=== PATIENT | male | born 1980 | race Caucasian/White ===

== ENCOUNTER 2018-06-05 07:38 | Inpatient (IN) ==
[2018-06-05] MEDS ORDERED: LORazepam 0.5 MG Tablet PO ONE (07:52)
--- NOTE | 2018-06-05 07:59 | ED ---
HPI General Chief Complaint: Psychiatric Symptoms Stated Complaint: Chest Pain Time Seen by Provider: 06/05/18 07:52 Source: patient and EMS Mode of arrival: EMS Limitations: no limitations History of Present Illness HPI Narrative: 37-year-old male patient with history of depression, presents to the ER today brought in by EMS because he states that he is feeling scared, feels like he is not safe, is anxious, having chest discomfort, palpitations, shortness of breath, and states that it is starting to get better now. He currently states that the discomfort is a 5 out of 10. He states he has had suicidal ideation in the past although denies any currently. He denies any homicidal ideation, hallucinations. He states that his mother was schizophrenic. He is requesting to see a psychiatrist. Modifying Factors: None Associated Signs & Symptoms: Anxiety, chest discomfort, paranoia, request for psychiatric care Risk Factors: Depression history Related Data Home Medications Medication Instructions Recorded Confirmed No Known Home Medications 06/05/18 06/05/18 Allergies Allergy/AdvReac Type Severity Reaction Status Date / Time aspirin Allergy Rash Verified 06/05/18 07:50 Review of Systems ROS: all other systems reviewed are negative PMFSH History History Provided By: Patient Medical History Medical History Depression (Acute) Family History Family History Father Cancer Heart disease Mother Cancer Heart disease Other Parents Social History Social History Substance History: Active Abuse Second Hand Smoke Exposure: No Smoking Status: Current every day smoker Tobacco Type: Cigarettes Packs Per Day: 1 Cigarettes Per Day: 20.0 How Often Do You Have a Drink Containing Alcohol: Monthly or less Recent Travel in [facility] within the Last 8 Weeks: No Recent Out of Country Travel within the Last 8 Weeks: No Exam Narrative Exam Narrative: GENERAL: Well-developed thin middle-aged male patient currently in mild distress. Awake and oriented x3. SKIN: Focused skin assessment warm/dry. HEAD: Atraumatic. Normocephalic. EYES: Pupils equal and round. No scleral icterus. No injection or drainage. ENT: No nasal bleeding or discharge. Mucous membranes pink and moist. NECK: Trachea midline. No JVD. CARDIOVASCULAR: Regular rate and rhythm. No murmur appreciated. RESPIRATORY: No accessory muscle use. Clear to auscultation. Breath sounds equal bilaterally. GASTROINTESTINAL: Abdomen soft, non-tender, nondistended. Hepatic and splenic margins not palpable. MUSCULOSKELETAL: No obvious deformities. No clubbing. No cyanosis. No edema. NEUROLOGICAL: Awake and alert. No obvious cranial nerve deficits. Motor grossly within normal limits. Normal speech. PSYCHIATRIC: Depressed mood and flat affect; insight and judgment normal. Course Initial Documented Vital Signs Temperature 98.1 F 06/05/18 07:51 Pulse Rate 83 06/05/18 07:51 Respiratory Rate 16 06/05/18 07:51 Blood Pressure 175/93 H 06/05/18 07:51 Pulse Oximetry 100 06/05/18 07:51 Last Documented Vital Signs Temperature 97.6 F 06/07/18 17:15 Pulse Rate 118 H 06/07/18 17:15 Respiratory Rate 18 06/07/18 17:15 Blood Pressure 129/84 06/07/18 17:15 Pulse Oximetry 99 06/07/18 17:15 Medical Decision Making MDM Narrative Medical decision making narrative: Patient is fairly anxious and mildly paranoid. He wants to speak to psychiatry. He has no current homicidal or suicidal ideation and hallucinations. However, I think it is appropriate for him to see psych. Symptoms are most consistent with an anxiety attack. EKG and lab work was fairly unremarkable. My plan at this point would be to medically clear him for psychiatric evaluation. Medical Screen Exam Complete: Yes Emergency Medical Condition: Yes Differential Diagnosis Differential Diagnosis: Anxiety attack versus psychosis versus electrolyte abnormalities versus dysrhythmias versus AC Lab Data Lab results reviewed: Yes I reviewed the patient's lab results. Result diagrams: 06/05/18 07:50 06/07/18 06:35 Lab Results 06/05/18 06/05/18 06/05/18 Range/Units 07:50 07:50 09:45 WBC 8.0 (4.0-11.0) th/mm3 RBC 4.45 L (4.50-5.90) mil/mm3 Hgb 13.6 (13.0-17.0) gm/dL Hct 39.6 (39.0-51.0) % MCV 89.0 (80.0-100.0) fL MCH 30.4 (27.0-34.0) pg MCHC 34.2 (32.0-36.0) % RDW 14.8 (11.6-17.2) % Plt Count 244 (150-450) th/mm3 MPV 8.1 (7.0-11.0) fL Neut % (Auto) 74.0 H (16.0-70.0) % Lymph % (Auto) 17.9 (9.0-44.0) % Lincoln % (Auto) 4.5 (0.0-8.0) % Eos % (Auto) 2.8 (0.0-4.0) % Baso % (Auto) 0.8 (0.0-2.0) % Neut # (Auto) 5.9 (1.8-7.7) th/mm3 Lymph # (Auto) 1.4 (1.0-4.8) th/mm3 Lincoln # (Auto) 0.4 (0.0-0.9) th/mm3 Eos # (Auto) 0.2 (0.0-0.4) th/mm3 Baso # (Auto) 0.1 (0.0-0.2) th/mm3 WBC Differential . Differential Comment Auto diff final Sodium 140 (136-145) meq/L Potassium 4.2 (3.5-5.1) meq/L Chloride 105 (98-107) meq/L Carbon Dioxide 29.4 (21.0-32.0) meq/L Anion Gap 6 (5-15) meq/L BUN 11 (7-18) mg/dL Creatinine 0.83 (0.60-1.30) mg/dL Estimated GFR Greater than 89 (>89) mL/min Random Glucose 97 (74-106) mg/dL Hemoglobin A1c (4.3-6.0) % Calcium 8.4 L (8.5-10.1) mg/dL Magnesium 2.2 (1.5-2.5) mg/dL Total Bilirubin 0.2 (0.2-1.0) mg/dL AST 22 (15-37) U/L ALT 31 (12-78) U/L Alkaline Phosphatase 71 (45-117) U/L Troponin I Less than 0.02 L (0.02-0.05) ng/mL Total Protein 7.7 (6.4-8.2) g/dL Albumin 4.0 (3.4-5.0) g/dL Triglycerides (42-150) mg/dL Cholesterol (120-200) mg/dL LDL Cholesterol, Calc (0-99) mg/dL HDL Cholesterol (40.0-60.0) mg/dL Cholesterol/HDL Ratio Ratio TSH 0.629 (0.358-3.740) uIU/mL Urine Opiates Screen Neg (Neg) Ur Barbiturates Screen Neg (Neg) Ur Amphetamines Screen Pos H (Neg) U Benzodiazepines Scrn Neg (Neg) Urine Cocaine Screen Neg (Neg) U Cannabinoids Screen Pos H (Neg) Serum Alcohol Less than 3 (0-5) mg/dL 06/07/18 06/07/18 Range/Units 06:35 06:35 WBC (4.0-11.0) th/mm3 RBC (4.50-5.90) mil/mm3 Hgb (13.0-17.0) gm/dL Hct (39.0-51.0) % MCV (80.0-100.0) fL MCH (27.0-34.0) pg MCHC (32.0-36.0) % RDW (11.6-17.2) % Plt Count (150-450) th/mm3 MPV (7.0-11.0) fL Neut % (Auto) (16.0-70.0) % Lymph % (Auto) (9.0-44.0) % Lincoln % (Auto) (0.0-8.0) % Eos % (Auto) (0.0-4.0) % Baso % (Auto) (0.0-2.0) % Neut # (Auto) (1.8-7.7) th/mm3 Lymph # (Auto) (1.0-4.8) th/mm3 Lincoln # (Auto) (0.0-0.9) th/mm3 Eos # (Auto) (0.0-0.4) th/mm3 Baso # (Auto) (0.0-0.2) th/mm3 WBC Differential Differential Comment Sodium 141 (136-145) meq/L Potassium 4.4 (3.5-5.1) meq/L Chloride 105 (98-107) meq/L Carbon Dioxide 29.6 (21.0-32.0) meq/L Anion Gap 6 (5-15) meq/L BUN 21 H (7-18) mg/dL Creatinine 0.94 (0.60-1.30) mg/dL Estimated GFR Greater than 89 (>89) mL/min Random Glucose 96 (74-106) mg/dL Hemoglobin A1c 5.3 (4.3-6.0) % Calcium 8.8 (8.5-10.1) mg/dL Magnesium (1.5-2.5) mg/dL Total Bilirubin (0.2-1.0) mg/dL AST (15-37) U/L ALT (12-78) U/L Alkaline Phosphatase (45-117) U/L Troponin I (0.02-0.05) ng/mL Total Protein (6.4-8.2) g/dL Albumin (3.4-5.0) g/dL Triglycerides 137 (42-150) mg/dL Cholesterol 138 (120-200) mg/dL LDL Cholesterol, Calc 72 (0-99) mg/dL HDL Cholesterol 38.4 L (40.0-60.0) mg/dL Cholesterol/HDL Ratio 3.59 Ratio TSH (0.358-3.740) uIU/mL Urine Opiates Screen (Neg) Ur Barbiturates Screen (Neg) Ur Amphetamines Screen (Neg) U Benzodiazepines Scrn (Neg) Urine Cocaine Screen (Neg) U Cannabinoids Screen (Neg) Serum Alcohol (0-5) mg/dL Imaging Data Attestation: I personally reviewed and interpreted this imaging study as follows : Radiologist's impression: Chest X-Ray 06/05/18 07:52 CONCLUSION: Negative chest ECG Data Attestation: I personally reviewed and interpreted this ECG as follows: Interpretation: EKG shows NSR, no ST elevation or depression, and no arrhythmias. No significant T-wave inversions. Discharge Plan Discharge Disposition Patient Disposition: ED Admit(ED Internal Use Only) Discharge Condition Condition: Stable Discharge Order Discharge Orders: ED Use Only Admit Order (Routine); Ordered 06/06/18 Ordered By: Valerie Burton Discharge Details Anticipated Discharge Date: 06/05/18 Diagnosis: Acute anxiety Physicians Team ED Provider: Miki Mirza Primary Care Provider: Primary Care Lily,Wendy Attending Provider: Ron Askew Other Providers: Utilizer,[facility] ; Bakari Cunningham Status ED Status: Left Department Discharge Information Discharge Date/Time: 06/06/18 15:10
[2018-06-05 08:12] LABS: Baso # (Auto) 0.1 th/mm3 (0.0-0.2); Baso % (Auto) 0.8 % (0.0-2.0); Eos # (Auto) 0.2 th/mm3 (0.0-0.4); Eos % (Auto) 2.8 % (0.0-4.0); Hematocrit 39.6 % (39.0-51.0); Hemoglobin 13.6 gm/dL (13.0-17.0); Lymph # (Auto) 1.4 th/mm3 (1.0-4.8); Lymph % (Auto) 17.9 % (9.0-44.0); Mean Corpuscular HGB Conc 34.2 % (32.0-36.0); Mean Corpuscular Hemoglobin 30.4 pg (27.0-34.0); Mean Platelet Volume 8.1 fL (7.0-11.0); Mono # (Auto) 0.4 th/mm3 (0.0-0.9); Mono % (Auto) 4.5 % (0.0-8.0); Neut # (Auto) 5.9 th/mm3 (1.8-7.7); Platelet Count 244 th/mm3 (150-450); Red Blood Count 4.45 mil/mm3 (4.50-5.90); Red Cell Distribution Width 14.8 % (11.6-17.2)
--- NOTE | 2018-06-05 08:35 | XR ---
EXAM DATE: 06/05/2018 8:14 AM EST AGE/SEX: 37 years / Male INDICATIONS: Short of breath and heart palpitations. CLINICAL DATA: This is the patient's initial encounter. Patient reports that signs and symptoms have been present for 1 day and indicates a pain score of 0/10. MEDICAL/SURGICAL HISTORY: None. None. COMPARISON: No prior exams available for comparison. FINDINGS: A single AP view of the chest demonstrates the lungs to be symmetrically aerated without evidence of mass, infiltrate or effusion. The cardiomediastinal contours are unremarkable. Osseous structures a re intact. CONCLUSION: Negative chest Electronically signed by: Kali Swenson MD Board Certified Radiologist 06/05/2018 8:34 AM EST
[2018-06-05 08:37] LABS: Alanine Aminotransferase 31 U/L (12-78); Anion Gap 6 meq/L (5-15); Aspartate Aminotransferase 22 U/L (15-37); Blood Urea Nitrogen 11 mg/dL (7-18); Calcium 8.4 mg/dL (8.5-10.1); Carbon Dioxide 29.4 meq/L (21.0-32.0); Chloride 105 meq/L (98-107); Glomerular Filtration Rate Greater Than 89 mL/min (>89); Glucose,Random 97 mg/dL (74-106); Magnesium 2.2 mg/dL (1.5-2.5); Potassium 4.2 meq/L (3.5-5.1); Sodium 140 meq/L (136-145)
[2018-06-05 08:46] LABS: Alkaline Phosphatase 71 U/L (45-117); Thyroid Stimulating Hormone 0.629 uIU/mL (0.358-3.740); Total Protein 7.7 g/dL (6.4-8.2)
[2018-06-05 10:21] LABS: Amphetamine Screen,Urine Pos (Neg); Barbiturate Screen,Urine Neg (Neg); Cannabinoid Screen,Urine Pos (Neg); Cocaine Screen,Urine Neg (Neg)
[2018-06-05 10:32] LABS: Opiate Screen,Urine Neg (Neg)
--- NOTE | 2018-06-05 15:35 | ECG ---
Date Performed: 06/05/2018 Time Performed: 08:01:22 PTAGE: 37 years EKG: Sinus rhythm NORMAL ECG INTERPRETATION BASED ON A DEFAULT AGE OF 41 YEARS NO PREVIOUS TRACING DOCTOR: Vicenta Mcconnell Interpretating Date/Time 06/05/2018 15:32:08
[2018-06-06] MEDS ORDERED: Aluminum/Magnesium/Simethacone Susp 30 ML UDC PO PRN (15:59)
[2018-06-06] MEDS ORDERED: Acetaminophen 325 MG Tablet PO PRN (15:59)
[2018-06-06] MEDS ORDERED: traZODone 50 MG Tablet PO PRN (15:59)
--- NOTE | 2018-06-06 16:57 | P.HPPSY ---
Provisional Diagnosis Admission Date: June 05, 2018 07:38 [place] I.: Psychosis not otherwise specified [place] II.: Methamphetamine abuse Competence Certification of Person's Competence To Provide Express and Informed Consent I have personally examined Dar Booth, a person being served at [facility] on, June 06, 2018 1613. Express and informed consent means consent voluntarily given in writing, by a competent person, after sufficient explanation and disclosure of the subject matter involved to enable the person to make a knowing and willful decision without any element of force, fraud, deceit, duress, or other form of constraint or coercion. This person is 18 years of age or older, is not now known to be incompetent to consent to treatment with a guardian advocate, and does not have a health care surrogate or proxy currently making medical treatment decisions. I have found this person to be one of the following: [xxx] Competent to provide express and informed consent, as defined above, for voluntary admission to this facility and is competent to provide express and informed consent for treatment. He/she has the consistent capacity to make well reasoned, willful, and knowing decisions concerning his or her medical or mental health treatment. The person fully and consistently understands the purpose of the admission for examination/placement and is fully capable of personally exercising all rights assured [place] [] Incompetent to provide express and informed consent to voluntary admission, and this is incompetent to provide express and informed consent to treatment. The person must be transferred to involuntary status and a petition for a guardian advocate filed with the Circuit Court. [] Refusing to provide express and informed consent to voluntary admission but is competent to provide express and informed consent for treatment. The person must be discharged or transferred to involuntary status. Form shall be completed within 24 hours of a person's arrival at the receiving facility and filed in the clinical record of each person: 1. Admitted on a voluntary basis 2. Permitted to provide express and informed consent to his/her own treatment 3. Allowed to transfer from involuntary to voluntary status 4. Prior to permitting a person to consent to his or her own treatment after having been previously found incompetent to consent to treatment. History of Present Illness Capacity: Has capacity Chief Complaint: Psychosis not otherwise specified History of Present Illness: This is a 37-year-old single, male who presents to this facility voluntarily. He was brought in by his sister for paranoid delusions. He is not previously known to this facility and denies previous admissions for mental health treatment. He does endorse having been treated outpatient for depression but cannot remember the name of the medication. He is examined in his room in J pod with Benoit Hauser, heel caser present. He is found lying quietly on the bed with a blanket over him, clad in [facility]. He states that he believes "people are listening" when asked who is listening he states, "I do not know". He denies being suicidal or homicidal but endorses auditory hallucinations and visual hallucinations stating that he sees, "people pointing lasers and guns at me. They are out to get me and they want me ". He states this is been going on for approximately a week or so. He does appear to be paranoid as when an overhead announcement is made he jumped on the bed and starts looking around suspiciously. When asked if he would defend himself against these people he states, "what I do not have anything to do that with your do why I would run and hide, I do not want to ". The patient states that he is from [place] and is been down here to live with his sister for "not quite a year now". 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 His highest education is ninth grade. He denies the possession of any firearms in [place]. His toxicology screen is positive for methamphetamines and cannabinoids. He admits to using methamphetamine since the age of 18. He claims that he only does it approximately "3 times a month". He does state that he is dabbled and crack cocaine previously but denies using it on a regular basis. He claims that he smokes weed "every day if I could". He reports smoking cigarettes and states that he drinks occasionally. He reports that his mother had a diagnosis of paranoid schizophrenia. He states that he was a cutter as a young child and is somewhat vague when asked about previous suicide attempts. He reports that he feels he might have been trying to kill himself when cutting "as a kid". He does state that he had one previous overdose on methadone but insists that was an accident. When I mention that psychosis is often a result of methamphetamine use he becomes irritable and states, "I do not believe that methamphetamines have anything to do with it. I use them to help me work." Patient reports a previous history of asthma but states that he no longer uses any medication for it. He denies any previous surgeries. He denies being on any current prescribed medications. He states that he has been incarcerated in senior care with the longest period being "40 years something days". He states this was a drug-related charge. Review of Systems All other systems reviewed negative except as stated in HPI [facility] - History History Provided By: Patient - Medical History Medical History: Medical History (Last Reviewed 06/06/18 @ 16:47 by KRYSTAL Patel) Depression - Tobacco History Second Hand Smoke Exposure: No Tobacco Use In Past 30 Days: Yes Smoking Status: Current every day smoker Tobacco Type: Cigarettes - Alcohol History How Often Do You Have a Drink Containing Alcohol: Unable to Obtain - Travel History Recent Travel in the [place] Within the Last 8 Weeks: No Recent Travel Out of the Country Within the Last 8 Weeks: No - Immunization History Tetanus Immunization: Unsure Quality Measures - Psychiatric History Psychological trauma history: Denies Violence risk to others in the last 6 months: Denies Violence risk to self in the last 6 months: Denies - Substance Abuse History Drug or alcohol use in the past 12 months: Methamphetamines and cannabinoids Medications and Allergies Active Medications: Active Medications Acetaminophen (Tylenol) 650 mg PO Q4H PRN PRN Reason: Pain 1-5 or Temp >101F Al Hydrox/Mg Hydrox/Simethicone (Mag-Al Plus Susp Liq) 30 ml PO Q6H PRN PRN Reason: DYSPEPSIA Al Hydroxide/Mg Hydroxide (Milk Of Magnesia Liq) 30 ml PO Q12H PRN PRN Reason: Mild Constipation Hydroxyzine HCl (Atarax) 50 mg PO Q6H PRN PRN Reason: ANXIETY Nicotine (Habitrol 21 Mg Patch.24 Hr) 1 patch T-DERMAL DAILY SHANNAN Patch Removal (Remove Old Patch) 1 each T-DERMAL HS SHANNAN Trazodone HCl (Desyrel) 50 mg PO HS PRN PRN Reason: INSOMNIA Allergies Allergy/AdvReac Type Severity Reaction Status Date / Time aspirin Allergy Rash Verified 06/05/18 07:50 Home Medications Medication Instructions Recorded Confirmed Type No Known Home Medications 06/05/18 06/05/18 History Results - Labs CBC & Chem 7: 06/05/18 07:50 06/05/18 07:50 Exam Vital signs: Vital Signs 06/05/18 18:40 06/06/18 01:53 06/06/18 05:20 Temperature 97.6 F 98.4 F Pulse Rate 104 H 100 H 100 H Respiratory Rate 14 18 16 Blood Pressure 146/86 H 126/81 123/74 Pulse Oximetry 98 99 100 06/06/18 13:35 Temperature 98.6 F Pulse Rate 102 H Respiratory Rate 20 Blood Pressure 128/75 Pulse Oximetry 100 Intake & Output 06/05/18 06/06/18 06/06/18 18:59 06:59 18:59 Weight 105 lb - Constitutional no acute distress, chronically ill appearing - Routine HEENT Exam Head: Present: normocephalic, atraumatic - Routine Neurological Exam Present: alert, oriented X3 - Routine Psychiatric Exam Present: auditory hallucinations, visual hallucinations, agitated - Detailed Psychiatric Exam Mood and affect: Present: labile Thought content: Present: delusions (Paranoid) Mental Status Examination Appearance: Dirty, Disheveled Consciousness: Alert Orientation: x4 Motor Activity: Normal gait Speech: Rapid Language: Adequate Fund of Knowledge: Inadequate Attention and Concentration: Adequate Memory: Unremarkable Mood: Anxious Affect: Anxious Thought Process & Associations: Linear Thought Content: Hallucinations, Delusional Hallucination Type: Auditory, Visual Delusion Type: Paranoid Suicidal Ideation: No Suicidal Plan: No Suicidal Intention: No Homicidal Ideation: No Homicidal Plan: No Homicidal Intention: No Insight: Poor Judgment: Impulsive Assessment and Plan - Assessment (1) Unspecified psychosis Code(s): F29 - Unspecified psychosis not due to a substance or known physiological condition Status: Acute - Plan Plan: Estimated LOS: [5] days patient is presenting as paranoid delusional with auditory and visual hallucinations which could likely be from methamphetamine abuse. He does endorse previous familial history of schizophrenia and his mother. He is being admitted to locked inpatient psychiatric unit for further evaluation and treatment as deemed necessary. Consent has been obtained from the patient as he does have capacity to initiate Seroquel by mouth at 25 mg twice a day to be started at bedtime tonight. Additionally, he has given consent for hydroxyzine 50 mg by mouth every 6 hours as needed for anxiety and diphenhydramine 50 mg by mouth as needed at bedtime for insomnia. Justification for Continued Inpatient Stay: Moving this patient to a less restrictive environment would likely result in decompensation. Patient is being started on Seroquel to target his paranoid delusions and hallucinations. (1) Unspecified psychosis Qualifiers: Psychosis type: unspecified psychosis type Qualified Code(s): F29 - Unspecified psychosis not due to a substance or known physiological condition
[2018-06-07 07:27] LABS: Anion Gap 6 meq/L (5-15); Blood Urea Nitrogen 21 mg/dL (7-18); Calcium 8.8 mg/dL (8.5-10.1); Carbon Dioxide 29.6 meq/L (21.0-32.0); Chloride 105 meq/L (98-107); Glomerular Filtration Rate Greater Than 89 mL/min (>89); Glucose,Random 96 mg/dL (74-106); Potassium 4.4 meq/L (3.5-5.1); Sodium 141 meq/L (136-145)
[2018-06-07 07:28] LABS: Cholesterol 138 mg/dL (120-200); Triglycerides 137 mg/dL (42-150)
[2018-06-07 07:30] LABS: Chol/HDL Ratio 3.59 Ratio; HDL Cholesterol 38.4 mg/dL (40.0-60.0); LDL Cholesterol,Calculated 72 mg/dL (0-99)
[2018-06-07 11:50] LABS: Hemoglobin A1c 5.3 % (4.3-6.0)
--- NOTE | 2018-06-07 11:53 | ECG ---
Date Performed: 06/07/2018 Time Performed: 10:18:02 PTAGE: 37 years EKG: Sinus rhythm RIGHT ATRIAL ENLARGEMENT POSSIBLE LEFT ATRIAL ENLARGEMENT ABNORMAL ECG PREVIOUS TRACING : 06/05/2018 08.01 DOCTOR: Clayton Rubalcava Interpretating Date/Time 06/07/2018 11:50:40
--- NOTE | 2018-06-07 13:02 | P.PNPSY ---
Subjective Chief Complaint: Psychosis not otherwise specified Remarks: Patient is a 37-year-old white male initially admitted to the unit by the nurse practitioner Valerie her H&P reviewed and agreed with. He is on a voluntary status I agree with that also. He was screened in the ED urine toxicology positive for amphetamines and marijuana. Patient did state to me he has a long history of alcohol related issues with multiple legal issues and DUIs. He has had also significant frequent use of marijuana and methamphetamine including intravenous methamphetamine use. He has had various legal issues in incarcerations related to those drugs also. He states a past psychiatric history of depression a number of years ago with possible via hospitalization in [place] but none in the past 10+ years. He states he once tried Seroquel briefly getting it off the street. At this time he remains depressed with initial and mid insomnia and a.m. energy increased crying spells decreased concentration and attention there is a decreased appetite. There is a mild suicidality he does acknowledge auditory and visual hallucinations of a command nature telling him to harm himself. We did discuss medications. Start patient on Zoloft 25 mg daily and add Seroquel 25 mg at 8 AM 4 PM 50 mg at at bedtime. We will discontinue the trazodone we will attempt to refrain from any benzodiazepines or opiates. Hopefully to be a fairly short stay and returned him perhaps home with his sister or perhaps to a sober living facility Review of Systems All other systems reviewed negative except as stated in HPI Mental Status Examination Appearance: Dirty, Disheveled Consciousness: Alert Orientation: x4 Motor Activity: Normal gait Speech: Rapid Language: Adequate Fund of Knowledge: Inadequate Attention and Concentration: Adequate Memory: Unremarkable Mood: Anxious Affect: Anxious Thought Process & Associations: Linear Thought Content: Hallucinations, Delusional Hallucination Type: Auditory, Visual Delusion Type: Paranoid Suicidal Ideation: No Suicidal Plan: No Suicidal Intention: No Homicidal Ideation: No Homicidal Plan: No Homicidal Intention: No Insight: Poor Judgment: Impulsive Assessment and Plan - Assessment (1) Major depressive disorder, recurrent, severe with psychotic features Code(s): F33.3 - Major depressive disorder, recurrent, severe with psychotic symptoms Status: Acute (2) Amphetamine abuse Code(s): F15.10 - Other stimulant abuse, uncomplicated Status: Acute (3) Marijuana abuse Code(s): F12.10 - Cannabis abuse, uncomplicated Status: Acute - Plan Plan: At this time patient remains quite depressed and psychotic and suicidal. There is willing to be cooperative with medication. We will start him on Zoloft and Seroquel hopefully to be fairly short stay if needed discussed also placement issues with this gentleman Justification for Continued Inpatient Stay: At this time patient with decompensated placed in a lower level of care Discharge Planning: To be determined Request Healthcare Surrogate/Guardian Advocate?: No
[2018-06-07] MEDS: Sertraline 50 MG Tablet PO SCH (13:32)
--- NOTE | 2018-06-07 13:42 | P.DIET ---
Nutritional Evaluation Type of nutrition evaluation: initial Nutrition screening: Weight Loss > 10 lbs Screening comments: Admission Screenings History: Pt stated he "used to weigh about 130-lb". Stated he is "too scared to eat" Subjective Subjective Comments: 100% po for meals today 06/07/18 at time of this entry Objective - Diagnosis Psychosis NOS - Objective % IBW: 84 Body Weight Used for Calculations: Actual (47.627 kg) Energy Needs - Lower Range (kCal/kg): 33 Energy Needs - Upper Range (kCal/kg): 38 Lower Limit kCal/kg (kCals): 1,571 Upper Limit kCal/kg (kCals): 1,810 Lower Limit Protein Factor (Grams per Kg): 1.2 Upper Limit Protein Factor (Grams per Kg): 1.6 Lower Protein Needs (Protein): 57 Upper Protein Needs (Protein): 76 Dietitian Reviewed in Medical Record: Current diet, Curent medications, Intake & Output, Labs, Medical history Diet Order: Regular Oral Diet Intake Amount: Excellent 90%+ Objective Comments: PMH: Depression A1C pending Meds include: Seroquel, Zoloft Assessment Assessment: Pt is at nutritional risk r/t unintentional wt loss from 130-lb to current wt. Adequate po intake 100% for meals here. Send Ensure Enlive TID(= 350 kcal and 20g protein per serving)for added nutrition. Labs reviewed. Dietitian will follow. Recommendations: 1. Send Ensure Enlive TID 2. Dietitian will follow Dietitian to Monitor: Lab values, Supplement acceptance, Intake & Output, Weight change, PO Intake, Medical course
[2018-06-07] MEDS: QUEtiapine 25 MG Tablet PO SCH (16:13)
--- NOTE | 2018-06-07 18:01 | P.CON ---
History of Present Illness Service: [facility] Consult date: 06/07/18 Requesting Physician: Ron Askew Reason for Consult: Abnormal EKG Primary Care Provider: No Primary Care Physician Chief Complaint: "I am scared" History of Present Illness: Patient is a 37-year-old male with no significant past medical history except for psychiatric history of depression who came in initially to the hospital brought in by EMS because he states that he is feeling scared, feels like he is not safe, very anxious, having chest discomfort, palpitations, shortness of breath. He is now admitted to inpatient psychiatry unit for further evaluation. Consulted for assistance with abnormal EKG. Patient seen and examined today. Reports he has no past medical history that he knows of, denies any past surgical history. States he feels really scared. He denies any chest pain, palpitations, headaches, dizziness, shortness of breath or dyspnea. He denies nausea, vomiting, diarrhea. He denies dysuria. Review of Systems All other systems reviewed negative except as stated in HPI PMFSH - History History Provided By: Patient - Medical / Surgical Hx Neg / Unobtainable Surgical History: No Previous Surgery - Medical History Medical History: Medical History (Last Reviewed 06/07/18 @ 17:49 by KRYSTAL Teran) Depression - Family History Family History: Family History (Last Updated 06/07/18 @ 17:50 by KRYSTAL Teran) Father Cancer Heart disease Mother Cancer Heart disease Other Parents - Social History I have reviewed the patient's Social History: Yes - Tobacco History Second Hand Smoke Exposure: No Tobacco Use In Past 30 Days: Yes Smoking Status: Current every day smoker Tobacco Type: Cigarettes Packs Per Day: 1 - Alcohol History How Often Do You Have a Drink Containing Alcohol: Monthly or less - Substance Use History Substance History: Active Abuse - Substance Use Type Amphetamines Type: Cocaine history Last Used: Unable to tell last use Comment: Patient is very reclusive, states he uses cocaine before but does not recall last use. Does not respond to what he uses the drug for peer - Travel History Recent Travel in the [place] Within the Last 8 Weeks: No Recent Travel Out of the Country Within the Last 8 Weeks: No - Immunization History Tetanus Immunization: <5 Years Hx Influenza Vaccine This Season: No Medications and Allergies Active Medications: Active Medications Acetaminophen (Tylenol) 650 mg PO Q4H PRN PRN Reason: Pain 1-5 or Temp >101F Al Hydrox/Mg Hydrox/Simethicone (Mag-Al Plus Susp Liq) 30 ml PO Q6H PRN PRN Reason: DYSPEPSIA Al Hydroxide/Mg Hydroxide (Milk Of Magnesia Liq) 30 ml PO Q12H PRN PRN Reason: Mild Constipation Al Hydroxide/Mg Hydroxide (Milk Of Magnesia Liq) 30 ml PO Q12H PRN PRN Reason: Mild Constipation Hydroxyzine HCl (Atarax) 50 mg PO Q6H PRN PRN Reason: ANXIETY Miscellaneous (Pill Splitter) 1 each OTHER UNSCH PRN PRN Reason: PILL SPLITTING Nicotine (Habitrol 21 Mg Patch.24 Hr) 1 patch T-DERMAL DAILY [facility] Last Admin: 06/07/18 09:37 Dose: 1 patch Patch Removal (Remove Old Patch) 1 each T-DERMAL HS [facility] Last Admin: 06/06/18 21:53 Dose: Not Given Quetiapine Fumarate (Seroquel) 25 mg PO BID@0900,1600 [facility] Last Admin: 06/07/18 16:13 Dose: 25 mg Quetiapine Fumarate (Seroquel) 50 mg PO HS [facility] Sertraline HCl (Zoloft) 25 mg PO DAILY [facility] Last Admin: 06/07/18 13:32 Dose: 25 mg Allergies Allergy/AdvReac Type Severity Reaction Status Date / Time aspirin Allergy Rash Verified 06/05/18 07:50 Home Medications Medication Instructions Recorded Confirmed Type No Known Home Medications 06/05/18 06/05/18 History Physical Exam Vital signs: Vital Signs 06/07/18 06:00 06/07/18 17:15 Temperature 97.7 F 97.6 F Pulse Rate 84 118 H Respiratory Rate 16 18 Blood Pressure 113/78 129/84 Pulse Oximetry 100 99 Intake & Output 06/06/18 06/07/18 06/07/18 18:59 06:59 18:59 Weight 47.62 kg Other: Weight On Admission 47.627 kg Narrative: GENERAL: This is a thin appearing, appears to be older than stated age, in no apparent distress. SKIN: Warm and dry. HEENT: Normocephalic. Pupils equal round and reactive. Nose without bleeding. Airway patent. NECK: Trachea midline. CARDIOVASCULAR: Regular rate to tachycardia without murmurs, gallops, or rubs. RESPIRATORY: Clear to auscultation. Breath sounds equal bilaterally. No wheezes , rales, or rhonchi. GASTROINTESTINAL: Abdomen soft, non-tender, nondistended. Bowel Sounds normoactive x4. MUSCULOSKELETAL: Extremities without clubbing, cyanosis, or edema. NEUROLOGICAL: Awake and alert. No focal neuro deficit. Moves all extremities. Slow speech. Calm and cooperative Results - Labs CBC & Chem 7: 06/05/18 07:50 06/07/18 06:35 Labs: Laboratory Results - last 24 hr 06/07/18 06/07/18 06:35 06:35 Sodium 141 Potassium 4.4 Chloride 105 Carbon Dioxide 29.6 Anion Gap 6 BUN 21 H Creatinine 0.94 Estimated GFR Greater than 89 Random Glucose 96 Hemoglobin A1c 5.3 Calcium 8.8 Triglycerides 137 Cholesterol 138 LDL Cholesterol, Calc 72 HDL Cholesterol 38.4 L Cholesterol/HDL Ratio 3.59 Assessment and Plan - Plan Patient is a 37-year-old male with no significant past medical history except for psychiatric history of depression who came in initially to the hospital brought in by EMS because he states that he is feeling scared, feels like he is not safe, very anxious, having chest discomfort, palpitations, shortness of breath. He is now admitted to inpatient psychiatry unit for further evaluation. Consulted for assistance with abnormal EKG. Depression -Managed by psychiatry team Abnormal EKG On and off tachycardia, possible withdrawal symptoms from polysubstance use -Previous EKG reviewed no ST segment changes, no QT prolongation noted. Sinus rhythm with right atrial enlargement, possible left atrial enlargement -Chest x-ray reviewed cardiomediastinal contours are unremarkable -Repeat EKG -Possible abnormality secondary to illicit drug use, U tox positive for amphetamines, cannabinoids -Can use clonidine patch 0.1 mg if tachycardia continues Polysubstance use -Admits to using cocaine, very reclusive as to what he is at 4 or the last time he used it. -U tox positive for amphetamines, cannabinoids -Patient was counseled. Tobacco abuse -Patient was counseled. Approximately 15 minutes was spent counseling the patient is cessation techniques. Understands continuing to smoke could lead to stroke and , or COPD. Benefits of stopping also presented to the patient. Patient verbalized understanding, does not verbalized desire to try smoking cessation and its fully understand its benefits. -Nicotine patch Labs reviewed within normal limits except for U tox Full code. DVT prop early ambulation Thank you for this consultation. We will recheck EKG. If EKG is within normal , will sign off. Discussed Condition With: Patient, nursing Discharge Planning: DC disposition by primary team
[2018-06-07] MEDS: QUEtiapine 100 MG Tablet PO SCH (21:43)
[2018-06-08] MEDS: Sertraline 50 MG Tablet PO SCH (09:20)
[2018-06-08] MEDS: QUEtiapine 25 MG Tablet PO SCH ×2 (09:23→16:20)
--- NOTE | 2018-06-08 13:58 | P.PNPSY ---
Subjective Chief Complaint: Psychosis not otherwise specified Remarks: Patient seen for follow-up, chart reviewed, patient discussed with nursing staff ; we reviewed the patient's mood, thoughts, and behaviors from overnight and this morning. Nursing reports that the patient slept approximately 7 hours overnight but he did not get his nighttime dose of Seroquel because he was somnolent and difficult to arouse at the time of his dosing. Patient was asked about his reaction to Seroquel and he denies having difficulty tolerating it and if he was excessively somnolent last night, he believes his body will get used to it. The patient reports overall he is feeling better, less anxious and more hopeful. He denies feeling any heart palpitations but does admit that elevations to his heart rate seems to be associated with when he is feeling anxious. Review of Systems All other systems reviewed negative except as stated in HPI Mental Status Examination Appearance: Dirty, Disheveled Consciousness: Alert Orientation: x4 Motor Activity: Normal gait Speech: Rapid Language: Adequate Fund of Knowledge: Inadequate Attention and Concentration: Adequate Memory: Unremarkable Mood: Anxious Affect: Anxious Thought Process & Associations: Linear Thought Content: Appropriate Hallucination Type: None Delusion Type: None, Paranoid Suicidal Ideation: No Suicidal Plan: No Suicidal Intention: No Homicidal Ideation: No Homicidal Plan: No Homicidal Intention: No Insight: Poor Judgment: Impulsive Assessment and Plan - Assessment (1) Major depressive disorder, recurrent, severe with psychotic features Code(s): F33.3 - Major depressive disorder, recurrent, severe with psychotic symptoms Status: Acute (2) Amphetamine abuse Code(s): F15.10 - Other stimulant abuse, uncomplicated Status: Acute (3) Marijuana abuse Code(s): F12.10 - Cannabis abuse, uncomplicated Status: Acute - Plan Plan: 06/07/2018: At this time patient remains quite depressed and psychotic and suicidal. There is willing to be cooperative with medication. We will start him on Zoloft and Seroquel hopefully to be fairly short stay if needed discussed also placement issues with this gentleman 06/08/2018: Good response to treatment, the patient is sleeping better and he is no longer endorsing active thoughts of suicide or hallucinations. He expressed motivation to continue his current medications despite initial somnolence. Continue inpatient observation and stabilization. Continue Zoloft 25 mg a day for treatment of depression, Seroquel 25 mg twice a day +50 mg at bedtime for treatment of mood and psychosis, Atarax 50 mg every 6 hours as needed for anxiety. Hospitalist to follow up with recent EKG results. Justification for Continued Inpatient Stay: Patient remains an elevated risk for self-harm and will require further inpatient stabilization and preparation of a safe discharge plan. Moving patient to a less restrictive environment at this time may result in decompensation. Request Healthcare Surrogate/Guardian Advocate?: No
--- NOTE | 2018-06-08 18:04 | P.PNADD ---
Addendum to Inpatient Note Reason for Addendum: Additional Documentation Additional information: Reviewed latest EKG. Showing abnormal EKG with right atrial and possible left atrial enlargement. Tachycardia at 111. No QT prolongation. Tachycardia possibly secondary to anxiety versus withdrawal. May use clonidine. Spoke with nurse, no acute issues today. Overnight patient has slept was not given any Seroquel but they have a hard time waking him up this morning. He is able to take Seroquel today without any somnolence nor lethargy associated. Discussed with nursing will order echocardiogram. Otherwise, patient was doing well.
[2018-06-08] MEDS: QUEtiapine 100 MG Tablet PO SCH (20:31)
--- NOTE | 2018-06-09 01:11 | ECG ---
Date Performed: 06/07/2018 Time Performed: 18:31:38 PTAGE: 37 years EKG: SINUS TACHYCARDIA RIGHT ATRIAL ENLARGEMENT POSSIBLE LEFT ATRIAL ENLARGEMENT ABNORMAL ECG PREVIOUS TRACING : 06/07/2018 10.18 Since the previous tracing, no significant change noted DOCTOR: Sagar Caraballo Interpretating Date/Time 06/09/2018 01:10:31
[2018-06-09] MEDS: Sertraline 50 MG Tablet PO SCH (08:33)
[2018-06-09] MEDS: QUEtiapine 25 MG Tablet PO SCH ×2 (08:34→17:23)
--- NOTE | 2018-06-09 09:42 | P.PNPSY ---
Subjective Chief Complaint: Psychosis not otherwise specified Remarks: Reveiwed electronic medical record and discussed with nursing staff. Rounded with HIEU Bee. Patient is in his room in bed. He continues to be very depressed. He is quiet and responds to questions with short answers , not willing to elaborate. He endorses chronic pain in his hips bilaterally. He endorses no suicidal or homicidal ideations. Mood is sad and affect is flat and blunted. Review of Systems All other systems reviewed negative except as stated in HPI Musculoskeletal: Reports body aches Comments: bilateral hip pain Mental Status Examination Appearance: Dirty, Disheveled Consciousness: Alert Orientation: x4 Motor Activity: Normal gait Speech: Rapid Language: Adequate Fund of Knowledge: Inadequate Attention and Concentration: Adequate Memory: Unremarkable Mood: Sad Affect: Flat, Blunt Thought Process & Associations: Linear Thought Content: Appropriate Hallucination Type: None Delusion Type: None, Paranoid Suicidal Ideation: No Suicidal Plan: No Suicidal Intention: No Homicidal Ideation: No Homicidal Plan: No Homicidal Intention: No Insight: Poor Judgment: Impulsive Assessment and Plan - Assessment (1) Major depressive disorder, recurrent, severe with psychotic features Code(s): F33.3 - Major depressive disorder, recurrent, severe with psychotic symptoms Status: Acute (2) Amphetamine abuse Code(s): F15.10 - Other stimulant abuse, uncomplicated Status: Acute (3) Marijuana abuse Code(s): F12.10 - Cannabis abuse, uncomplicated Status: Acute - Plan Plan: 06/09/18 continues to be very depressed. Complaining of chronic cindy hip pain. Asking for medications for the discomfort, will add motrin. Continue current treatment plan. 06/07/2018: At this time patient remains quite depressed and psychotic and suicidal. There is willing to be cooperative with medication. We will start him on Zoloft and Seroquel hopefully to be fairly short stay if needed discussed also placement issues with this gentleman 06/08/2018: Good response to treatment, the patient is sleeping better and he is no longer endorsing active thoughts of suicide or hallucinations. He expressed motivation to continue his current medications despite initial somnolence. Continue inpatient observation and stabilization. Continue Zoloft 25 mg a day for treatment of depression, Seroquel 25 mg twice a day +50 mg at bedtime for treatment of mood and psychosis, Atarax 50 mg every 6 hours as needed for anxiety. Hospitalist to follow up with recent EKG results. Justification for Continued Inpatient Stay: Moving patient to a less restrictive environment may result in his decompensation. Request Healthcare Surrogate/Guardian Advocate?: No
[2018-06-09] MEDS ORDERED: Ibuprofen 400 MG Tablet PO PRN (09:48)
--- NOTE | 2018-06-09 16:22 | P.PNIM ---
Subjective Interval history: Follow-up visit abnormal EKG, polysubstance abuse. Patient seen and examined today. Very irritable. States that he has been eating his mustache hair and its upsetting him. Very irritable. States he wants to go home now and want to get out of the place. Reports getting anxious. Otherwise, denies chest pain, palpitations, headaches, dizziness. Denies shortness of breath or dyspnea. Discussed abnormal EKG plan for echocardiogram. Patient is amenable, as long as he is able to trim or cut his mustache first. Informed nurse. Physical Exam Vital signs: Vital Signs 06/08/18 17:43 06/09/18 05:53 Temperature 98 F Pulse Rate 94 H 85 Respiratory Rate 17 18 Blood Pressure 135/78 122/76 Pulse Oximetry 100 Intake & Output 06/08/18 06/09/18 06/09/18 18:59 06:59 18:59 Intake Total 720 / 720 Balance 720 / 720 Intake: Oral 720 / 720 Narrative: GENERAL: This is a thin appearing, appears to be older than stated age, in no apparent distress. SKIN: Warm and dry. HEENT: Normocephalic. Pupils equal round and reactive. Nose without bleeding. Airway patent. Bearded with mustache NECK: Trachea midline. CARDIOVASCULAR: tachycardia without murmurs, gallops, or rubs. RESPIRATORY: Clear to auscultation. Breath sounds equal bilaterally. No wheezes , rales, or rhonchi. GASTROINTESTINAL: Abdomen soft, non-tender, nondistended. Bowel Sounds normoactive x4. MUSCULOSKELETAL: Extremities without clubbing, cyanosis, or edema. NEUROLOGICAL: Awake and alert. No focal neuro deficit. Moves all extremities. Slow speech. Calm and cooperative Results - Labs CBC & Chem 7: 06/05/18 07:50 06/07/18 06:35 Assessment and Plan - Plan Patient is a 37-year-old male with no significant past medical history except for psychiatric history of depression who came in initially to the hospital brought in by EMS because he states that he is feeling scared, feels like he is not safe, very anxious, having chest discomfort, palpitations, shortness of breath. He is now admitted to inpatient psychiatry unit for further evaluation. Consulted for assistance with abnormal EKG. Depression -Managed by psychiatry team Abnormal EKG On and off tachycardia, possible withdrawal symptoms from polysubstance use -Previous EKG reviewed no ST segment changes, no QT prolongation noted. Sinus rhythm with right atrial enlargement, possible left atrial enlargement -Chest x-ray reviewed cardiomediastinal contours are unremarkable -Repeat EKG showed right atrial enlargement, possible left atrial enlargement -Possible abnormality secondary to illicit drug use, U tox positive for amphetamines, cannabinoids -Tachycardia noted. Getting irritable poss withdrawal vs increase anxiety. Patient reports getting anxious. -ECHO ordered, may do in the outpatient if patient to be DCd - If ECHO is wnl, may sign off, f/u with PCP in the out patient Polysubstance use -Admits to using cocaine, very reclusive as to the last time he used it. -U tox positive for amphetamines, cannabinoids -Patient was counseled. Discussed drug effects on his heart and body. He became very irritable and states that while is that "everyone is blaming it on drugs" Tobacco abuse -Patient was counseled. Approximately 15 minutes was spent counseling the patient is cessation techniques. Understands continuing to smoke could lead to stroke and , or COPD. Benefits of stopping also presented to the patient. Patient verbalized understanding, does not verbalized desire to try smoking cessation and its fully understand its benefits. -Nicotine patch Labs reviewed within normal limits except for U tox Full code. DVT prop early ambulation Discussed Condition With: Patient, nursing Discharge Planning: DC disposition by primary team
[2018-06-09] MEDS: QUEtiapine 100 MG Tablet PO SCH (20:40)
[2018-06-10] MEDS: QUEtiapine 25 MG Tablet PO SCH ×2 (09:48→16:00)
[2018-06-10] MEDS: Sertraline 50 MG Tablet PO SCH (09:49)
--- NOTE | 2018-06-10 12:21 | P.PNIM ---
Subjective Interval history: Follow-up visit abnormal EKG, polysubstance abuse. Patient seen and examined today. Continues to report anxiety. States is doing okay otherwise. Reports chest pain occasionally, described as "pinpricks", mid sternal tenderness to palpate, reproducible. Otherwise, denies chest pain, palpitations, headaches, dizziness. Denies fevers, chills, n/v/d. Denies dysuria. Physical Exam Vital signs: Vital Signs 06/09/18 17:44 06/10/18 06:00 Temperature 98.2 F 97.7 F Pulse Rate 100 H 94 H Respiratory Rate 18 16 Blood Pressure 136/73 112/61 Pulse Oximetry 100 Intake & Output 06/09/18 06/10/18 06/10/18 18:59 06:59 18:59 Intake Total 720 / 720 Balance 720 / 720 Intake: Oral 720 / 720 Narrative: GENERAL: This is a thin appearing, appears to be older than stated age, in no apparent distress. SKIN: Warm and dry. HEENT: Normocephalic. Pupils equal round and reactive. Nose without bleeding. Airway patent. Bearded with mustache NECK: Trachea midline. CARDIOVASCULAR: tachycardia without murmurs, gallops, or rubs. Reproducible pain with midsternal. RESPIRATORY: Clear to auscultation. Breath sounds equal bilaterally. No wheezes , rales, or rhonchi. GASTROINTESTINAL: Abdomen soft, non-tender, nondistended. Bowel Sounds normoactive x4. MUSCULOSKELETAL: Extremities without clubbing, cyanosis, or edema. NEUROLOGICAL: Awake and alert. No focal neuro deficit. Moves all extremities. Slow speech. Calm and cooperative Results - Labs CBC & Chem 7: 06/05/18 07:50 06/07/18 06:35 Assessment and Plan - Plan Patient is a 37-year-old male with no significant past medical history except for psychiatric history of depression who came in initially to the hospital brought in by EMS because he states that he is feeling scared, feels like he is not safe, very anxious, having chest discomfort, palpitations, shortness of breath. He is now admitted to inpatient psychiatry unit for further evaluation. Consulted for assistance with abnormal EKG. Depression -Managed by psychiatry team Abnormal EKG On and off tachycardia, possible withdrawal symptoms from polysubstance use -Previous EKG reviewed no ST segment changes, no QT prolongation noted. Sinus rhythm with right atrial enlargement, possible left atrial enlargement -Chest x-ray reviewed cardiomediastinal contours are unremarkable -Repeat EKG showed right atrial enlargement, possible left atrial enlargement -Possible abnormality secondary to illicit drug use, U tox positive for amphetamines, cannabinoids -ECHO ordered, may do in the outpatient if patient to be DCd. Pending, not yet done -If ECHO is wnl, may sign off, f/u with PCP in the out patient -Tachycardia noted, reports anxiety. Clonidine patch, No BB for now utox pos amphetamine Polysubstance use -Admits to using cocaine, very reclusive as to the last time he used it. -U tox positive for amphetamines, cannabinoids -Patient was counseled. Discussed drug effects on his heart and body. Tobacco abuse -Patient was counseled. Approximately 15 minutes was spent counseling the patient is cessation techniques. Understands continuing to smoke could lead to stroke and , or COPD. Benefits of stopping also presented to the patient. Patient verbalized understanding, does not verbalized desire to try smoking cessation and its fully understand its benefits. -Nicotine patch Labs reviewed within normal limits except for U tox Full code. DVT prop early ambulation Discussed Condition With: Patient, nurse Discharge Planning: DC disposition by primary team
--- NOTE | 2018-06-10 15:27 | ECHRPT ---
Indication: Coronary Atherosclerosis CONCLUSIONS Normal left ventricular size. Wall thickness is normal. The left ventricular systolic function is normal with an estimated ejection fraction in the range of 60-65%. There is trace tricuspid valve regurgitation. The estimated pulmonary arterial pressure is 31 mmHg. BP: / HR: Rhythm: MEASUREMENTS (Male / Female) Normal Values Technical Quality:Good 2D ECHO LV Diastolic Diameter PLAX 3.6 cm 4.2 - 5.9 / 3.9 - 5.3 cm LV Systolic Diameter PLAX 2.4 cm IVS Diastolic Thickness 1.0 cm 0.6 - 1.0 / 0.6 - 0.9 cm LVPW Diastolic Thickness 1.0 cm 0.6 - 1.0 / 0.6 - 0.9 cm LV Relative Wall Thickness 0.6 RV Internal Dim ED PLAX 2.0 cm LVOT Diameter 1.9 cm Aortic Root Diameter 2.9 cm LA Systolic Diameter LX 2.5 cm 3.0 - 4.0 / 2.7 - 3.8 cm DOPPLER AV Peak Velocity 103.0 cm/s AV Peak Gradient 4.2 mmHg LVOT Peak Velocity 88.8 cm/s LVOT Peak Gradient 3.2 mmHg AV Area Cont Eq pk 2.4 cm Mitral E Point Velocity 57.8 cm/s Mitral A Point Velocity 85.4 cm/s Mitral E to A Ratio 0.7 LV E' Lateral Velocity 11.6 cm/s Mitral E to LV E' Lateral Ratio 5.0 LV E' Septal Velocity 7.5 cm/s Mitral E to LV E' Septal Ratio 7.7 TR Peak Velocity 228.0 cm/s TR Peak Gradient 20.8 mmHg Right Atrial Pressure 10.0 mmHg Pulmonary Artery Systolic Pressu 30.8 mmHg Right Ventricular Systolic Press 30.8 mmHg PV Peak Velocity 119.0 cm/s PV Peak Gradient 5.7 mmHg FINDINGS LEFT VENTRICLE Normal left ventricular size. Wall thickness is normal. The left ventricular systolic function is normal with an estimated ejection fraction in the range of 60-65%. RIGHT VENTRICLE Normal right ventricular size and systolic function. LEFT ATRIUM The left atrial size is normal. RIGHT ATRIUM The right atrial size is normal. ATRIAL SEPTUM Normal atrial septal thickness without atrial level shunting by limited color doppler interrogation. AORTA The aortic root and proximal ascending aorta are normal in size on limited imaging. MITRAL VALVE Structurally normal mitral valve. No mitral valve stenosis or regurgitation. AORTIC VALVE Trileaflet aortic valve. No aortic valve stenosis or regurgitation. TRICUSPID VALVE There is trace tricuspid valve regurgitation. The estimated pulmonary arterial pressure is 31 mmHg. PULMONARY VALVE No pulmonary valve regurgitation or stenosis. VESSELS The inferior vena cava is normal in size. PERICARDIUM No pericardial effusion. Phillip Burton MD, FACC, [facility] (Electronically Signed) Final Date:10 June 2018 15:26
--- NOTE | 2018-06-10 15:34 | P.PNPSY ---
Subjective Chief Complaint: Psychosis not otherwise specified Remarks: Patient is seen in his room with nurse Denisse, chart reviewed, patient compliant medication. Patient states there is still some vague suicidality and vague auditory hallucinations. He has talked with his sister she is willing to have him return home once he is further stabilized. For now continue treatment Review of Systems All other systems reviewed negative except as stated in HPI Mental Status Examination Appearance: Disheveled Consciousness: Alert Orientation: x4 Motor Activity: Normal gait Speech: Rapid (Slowed somewhat) Language: Adequate Fund of Knowledge: Inadequate Attention and Concentration: Adequate Memory: Unremarkable Mood: Sad Affect: Other (Decreased range and intensity) Thought Process & Associations: Linear Thought Content: Appropriate Hallucination Type: None (Vague auditory) Delusion Type: None, Paranoid Suicidal Ideation: No Suicidal Plan: No Suicidal Intention: No Homicidal Ideation: No Homicidal Plan: No Homicidal Intention: No Insight: Poor Judgment: Impulsive Assessment and Plan - Assessment (1) Major depressive disorder, recurrent, severe with psychotic features Code(s): F33.3 - Major depressive disorder, recurrent, severe with psychotic symptoms Status: Acute (2) Amphetamine abuse Code(s): F15.10 - Other stimulant abuse, uncomplicated Status: Acute (3) Marijuana abuse Code(s): F12.10 - Cannabis abuse, uncomplicated Status: Acute - Plan Plan: Patient continues depressed with vague auditory hallucinations. Compliant medication Justification for Continued Inpatient Stay: At this time patient with decompensated placed in a lower level of care Discharge Planning: To be determined possibly back with sister Request Healthcare Surrogate/Guardian Advocate?: No
[2018-06-10] MEDS: QUEtiapine 100 MG Tablet PO SCH (21:09)
[2018-06-11 05:51] VITALS: O2SAT 99
[2018-06-11] MEDS: QUEtiapine 25 MG Tablet PO SCH ×2 (08:50→15:12)
[2018-06-11] MEDS: Sertraline 50 MG Tablet PO SCH (08:50)
--- NOTE | 2018-06-11 12:05 | P.PNPSY ---
Subjective Chief Complaint: Psychosis not otherwise specified Remarks: Patient seen in day room with nurse Denisse, chart reviewed, patient up walking around eating of the day room. He is showing some increased range and intensity of his mood he now denies suicidality voices or visions. He is calmer more appropriate with me. He feels the medications are helping him. For now continue treatment. Consider discharge within 24-48 hours if his improvement continues Review of Systems All other systems reviewed negative except as stated in HPI Mental Status Examination Appearance: Appropriate Consciousness: Alert Orientation: x4 Motor Activity: Normal gait Speech: Rapid (Continues to slow) Language: Adequate Fund of Knowledge: Inadequate (Improving) Attention and Concentration: Adequate Memory: Unremarkable Mood: Sad (Improving) Affect: Other (Improving) Thought Process & Associations: Intact Thought Content: Appropriate Hallucination Type: None (Denies today) Delusion Type: None Suicidal Ideation: No Suicidal Plan: No Suicidal Intention: No Homicidal Ideation: No Homicidal Plan: No Homicidal Intention: No Insight: Fair Judgment: Impulsive (Improving) Assessment and Plan - Assessment (1) Major depressive disorder, recurrent, severe with psychotic features Code(s): F33.3 - Major depressive disorder, recurrent, severe with psychotic symptoms Status: Acute (2) Amphetamine abuse Code(s): F15.10 - Other stimulant abuse, uncomplicated Status: Acute (3) Marijuana abuse Code(s): F12.10 - Cannabis abuse, uncomplicated Status: Acute - Plan Plan: Patient mood improving now denies suicidality denies voices. Compliant with medication. For now continue treatment consider discharge 1-2 days if he continues to improve Justification for Continued Inpatient Stay: At this time patient with decompensated placed on a lower level of care Discharge Planning: Probable return home with sister Request Healthcare Surrogate/Guardian Advocate?: No
--- NOTE | 2018-06-11 14:21 | P.PNADD ---
Addendum to Inpatient Note Reason for Addendum: Additional Documentation Additional information: Chart reviewed. Vital signs stable. Patient's echocardiogram was resulted, unremarkable, EF 60-65%. The patient is medically stable at this time. Hospitalists will sign off. Please re-consult as needed or if any new issues arise.
[2018-06-11] MEDS: QUEtiapine 100 MG Tablet PO SCH (20:59)
[2018-06-12] MEDS: Sertraline 50 MG Tablet PO SCH (08:45)
[2018-06-12] MEDS: QUEtiapine 25 MG Tablet PO SCH ×3 (08:45→17:56)
--- NOTE | 2018-06-12 12:20 | P.PNPSY ---
Subjective Chief Complaint: Psychosis not otherwise specified Remarks: Patient seen in his room with nurse Conrad, chart reviewed, patient laying quietly in bed though today stating he did not sleep well still anxious vague suicidality. We will increase Seroquel to 50 mg 3 times daily. However also discussed discharge plans plan meeting for patient to be discharged tomorrow with follow-up in the community patient appears willing to do that however just before I left his room he asked me if I could get him on disability. I declined stated that could be done as an outpatient Review of Systems All other systems reviewed negative except as stated in HPI Mental Status Examination Appearance: Appropriate Consciousness: Alert Orientation: x4 Motor Activity: Normal gait Speech: Unremarkable Language: Adequate Fund of Knowledge: Inadequate (Improving) Attention and Concentration: Adequate Memory: Unremarkable Mood: Sad (Improving) Affect: Other (Improving) Thought Process & Associations: Intact Thought Content: Appropriate Hallucination Type: None (Denies today) Delusion Type: None Suicidal Ideation: No Suicidal Plan: No Suicidal Intention: No Homicidal Ideation: No Homicidal Plan: No Homicidal Intention: No Insight: Fair Judgment: Impulsive (Improving) Assessment and Plan - Assessment (1) Major depressive disorder, recurrent, severe with psychotic features Code(s): F33.3 - Major depressive disorder, recurrent, severe with psychotic symptoms Status: Acute (2) Amphetamine abuse Code(s): F15.10 - Other stimulant abuse, uncomplicated Status: Acute (3) Marijuana abuse Code(s): F12.10 - Cannabis abuse, uncomplicated Status: Acute - Plan Plan: Patient continues to voice vague anxiety and will increase Seroquel to 50 mg 3 times daily. However it appears to be perhaps a degree of manipulation in this since his last question for me today was if I could get him on disability Justification for Continued Inpatient Stay: At this time patient with decompensated placed on a lower level of care Discharge Planning: To be determined probable home with sister 24-48 hours Request Healthcare Surrogate/Guardian Advocate?: No
--- NOTE | 2018-06-12 12:30 | P.PNPSY ---
Subjective Chief Complaint: Psychosis not otherwise specified Remarks: Patient is seen in her room with nurse Emmy, chart reviewed, patient compliant medication. Attempted to discuss further the patient's [place] hearing scheduled for tomorrow and the implications of the act. Patient in a markedly angry tone of voice said "please do not Kem me any more " act has been completed we will discuss all of this with [place] charge tomorrow Review of Systems All other systems reviewed negative except as stated in HPI Mental Status Examination Appearance: Appropriate Consciousness: Alert Orientation: x4 Motor Activity: Normal gait Speech: Unremarkable Language: Adequate Fund of Knowledge: Inadequate (Improving) Attention and Concentration: Adequate Memory: Unremarkable Mood: Angry, Sad, Oppositional, Irritable Affect: Other (Increased range and intensity) Thought Process & Associations: Intact Thought Content: Appropriate, Bizarre thinking Hallucination Type: None (Denies today) Delusion Type: None Suicidal Ideation: No Suicidal Plan: No Suicidal Intention: No Homicidal Ideation: No Homicidal Plan: No Homicidal Intention: No Insight: Fair Judgment: Impulsive (Improving) Assessment and Plan - Assessment (1) Major depressive disorder, recurrent, severe with psychotic features Code(s): F33.3 - Major depressive disorder, recurrent, severe with psychotic symptoms Status: Acute (2) Amphetamine abuse Code(s): F15.10 - Other stimulant abuse, uncomplicated Status: Acute (3) Marijuana abuse Code(s): F12.10 - Cannabis abuse, uncomplicated Status: Acute - Plan Plan: Patient remains angry irritable when being confronted with her behaviors and her alcohol related issues. Patient scheduled for [place] tomorrow we will discuss [place] act and act with the [place] charge. Patient denies suicidality or voices with me though she is quite angry demanding and manipulative Justification for Continued Inpatient Stay: At this time patient would decompensated placed in a lower level of care Discharge Planning: To be determined Request Healthcare Surrogate/Guardian Advocate?: No
[2018-06-13 05:56] VITALS: BP 95/55; PULSE 83; RESP 17; TEMP 97.9
[2018-06-13] MEDS: Sertraline 50 MG Tablet PO SCH (08:17)
[2018-06-13] MEDS: QUEtiapine 25 MG Tablet PO SCH ×2 (08:17→12:51)
--- NOTE | 2018-06-13 10:20 | P.DSPSY ---
Psychiatry Discharge Summary Inpatient Psychiatric care?: Yes Advance Directives: No Mental Health Advance Directive: No Health Care Proxy: No - Admission Admission Date: June 06, 2018 16:13 - Admission Diagnosis (1) Major depressive disorder, recurrent, severe with psychotic features Code(s): F33.3 - Major depressive disorder, recurrent, severe with psychotic symptoms (2) Amphetamine abuse Code(s): F15.10 - Other stimulant abuse, uncomplicated (3) Marijuana abuse Code(s): F12.10 - Cannabis abuse, uncomplicated Brief History: This is a 37-year-old single, male who presents to this facility voluntarily. He was brought in by his sister for paranoid delusions. He is not previously known to this facility and denies previous admissions for mental health treatment. He does endorse having been treated outpatient for depression but cannot remember the name of the medication. He is examined in his room in pod with Benoit Hauser, case sealer present. He is found lying quietly on the bed with a blanket over him, clad in [facility]. He states that he believes "people are listening" when asked who is listening he states, "I do not know". He denies being suicidal or homicidal but endorses auditory hallucinations and visual hallucinations stating that he sees, "people pointing lasers and guns at me. They are out to get me and they want me ". He states this is been going on for approximately a week or so. He does appear to be paranoid as when an overhead announcement is made he jumped on the bed and starts looking around suspiciously. When asked if he would defend himself against these people he states, "what I do not have anything to do that with your do why I would run and hide, I do not want to ". The patient states that he is from [place] and is been down here to live with his sister for "not quite a year now". 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 His highest education is ninth grade. He denies the possession of any firearms in [place]. His toxicology screen is positive for methamphetamines and cannabinoids. He admits to using methamphetamine since the age of 18. He claims that he only does it approximately "3 times a month". He does state that he is dabbled and crack cocaine previously but denies using it on a regular basis. He claims that he smokes weed "every day if I could". He reports smoking cigarettes and states that he drinks occasionally. He reports that his mother had a diagnosis of paranoid schizophrenia. He states that he was a cutter as a young child and is somewhat vague when asked about previous suicide attempts. He reports that he feels he might have been trying to kill himself when cutting "as a kid". He does state that he had one previous overdose on methadone but insists that was an accident. When I mention that psychosis is often a result of methamphetamine use he becomes irritable and states, "I do not believe that methamphetamines have anything to do with it. I use them to help me work." Patient reports a previous history of asthma but states that he no longer uses any medication for it. He denies any previous surgeries. He denies being on any current prescribed medications. He states that he has been incarcerated in skilled nursing with the longest period being "40 years something days". He states this was a drug-related charge. Tobacco Use In Past 30 Days: Yes How Often Do You Have a Drink Containing Alcohol: Monthly or less Hospital Course: Patient's hospital course was uneventful, she will compliance with medication from day of admission. Depression suicidality slowly resolved the residual effects from his substance abuse also slowly resolved leading him to be more calm cooperative and pleasant with us. His range and intensity of his affect also improved. He has been denying suicidality or homicidality voices or visions. He has been in contact with his sister. She is willing to have him return home to stay with her. Thus at this time I feel patient has reached maximum benefit of this hospitalization is to be discharged to himself with Rx times 1 month. Follow-up [facility] medication management. Also refer to [facility] for voluntary substance abuse assessment, and referral also to and a - Discharge Discharge Date: 06/13/18 - Discharge Diagnosis (1) Major depressive disorder, recurrent, severe with psychotic features Diagnosis: Principal Code(s): F33.3 - Major depressive disorder, recurrent, severe with psychotic symptoms Status: Acute (2) Amphetamine abuse Diagnosis: Secondary Code(s): F15.10 - Other stimulant abuse, uncomplicated Status: Acute (3) Marijuana abuse Diagnosis: Secondary Code(s): F12.10 - Cannabis abuse, uncomplicated Status: Acute Discharge Disposition: Home (With sister) - Discharge Instructions Discharge Diet: Regular Diet Activities You Can Perform: Regular- No Restrictions - Discharge Time > 30 minutes Mental Status Examination Appearance: Appropriate Consciousness: Alert Orientation: x4 Motor Activity: Normal gait Speech: Unremarkable Language: Adequate Fund of Knowledge: Inadequate (Improving) Attention and Concentration: Adequate Memory: Unremarkable Mood: Angry, Sad, Oppositional, Irritable Affect: Other (Increased range and intensity) Thought Process & Associations: Intact Thought Content: Appropriate, Bizarre thinking Hallucination Type: None (Denies today) Delusion Type: None Suicidal Ideation: No Suicidal Plan: No Suicidal Intention: No Homicidal Ideation: No Homicidal Plan: No Homicidal Intention: No Insight: Fair Judgment: Impulsive (Improving) Discharge/Advance Care Plan - Results Vital Signs: Last Vital Signs Temp 97.9 F 06/13/18 05:55 Pulse 83 06/13/18 05:55 Resp 17 06/13/18 05:55 BP 95/55 L 06/13/18 05:55 Pulse Ox 99 06/13/18 05:55 Lab Results: Laboratory Results Hemoglobin A1c 5.3 % (4.3-6.0) 06/07/18 06:35 Triglycerides 137 mg/dL (42-150) 06/07/18 06:35 Cholesterol 138 mg/dL (120-200) 06/07/18 06:35 LDL Cholesterol, Calc 72 mg/dL (0-99) 06/07/18 06:35 HDL Cholesterol 38.4 mg/dL (40.0-60.0) L 06/07/18 06:35 TSH 0.629 uIU/mL (0.358-3.740) 06/05/18 07:50 Summary of Procedures: None done Imaging: ITS Impressions Chest X-Ray 06/05/18 07:52 CONCLUSION: Negative chest Pending Results: None - Medications Number of antipsychotic medications at discharge: 1 - Discharge Care Plan Goals to Promote Your Health: * To prevent worsening of your condition and complications * To maintain your health at the optimal level Directions to Meet Your Goals: Take your medications as prescribed Follow your dietary instruction Follow activity as directed Keep your appointments as scheduled Take your immunizations and boosters as scheduled If your symptoms worsen call your PCP, if no PCP go to Urgent Care Center or Emergency Room For 08/01 questions related to your inpatient stay or results of tests pending at discharge, please contact Dr. Ron Askew MD at Smoking is Dangerous to Your Health. Avoid second hand smoking
== END 2018-06-13 12:50 | disposition home or self-care (01) | DRG 885 ==
LOC: NEPC 07:38 → H260 06-06 15:10 → NEDA 06-06 16:13 → H260 06-06 17:47
PROVIDERS: ADMIT Psychiatry & Neurology Psychiatry; ATTEND Psychiatry & Neurology Psychiatry